=== PATIENT | female | born 1980 | race Caucasian/White ===

== ENCOUNTER 2018-05-27 10:17 | Emergency (ER) | payer MEDICAID | END 2018-05-27 11:18 | disposition home or self-care (01) | LOC: FTE 10:17 | DX: R21 Rash and other nonspecific skin eruption (principal) | CPT/HCPCS: 99283; Z7502 ==

== ENCOUNTER 2018-06-21 14:26 | Emergency (ER) | payer MEDICAID ==
[2018-06-21] MEDS: ONDANSETRON (ODT) 4 MG TAB ODT (16:11)
[2018-06-21] MEDS: MECLIZINE 12.5 MG TAB PO (16:11)
== END 2018-06-21 16:25 | disposition home or self-care (01) ==
LOC: FTE 14:26
DX: R42 Dizziness and giddiness (principal)
CPT/HCPCS: 93005; 99283

== ENCOUNTER 2018-07-15 10:59 | Emergency (ER) | payer MEDICAID ==
[2018-07-15] MEDS: KETOROLAC 30 MG INJ IM (12:00)
== END 2018-07-15 14:26 | disposition home or self-care (01) ==
LOC: FTE 10:59
DX: S92.424A Nondisplaced fracture of distal phalanx of right great toe, initial encounter for closed fracture (principal); W18.39XA Other fall on same level, initial encounter; Y92.9 Unspecified place or not applicable
CPT/HCPCS: 29515; 73630-LT; 81025; 96372; 99284-25